=== PATIENT | male | born 1995 | race Caucasian/White ===

== ENCOUNTER → 2017-06-08 | Outpatient (CLI) | payer OTHER ==
[2014-03-06 05:15] VITALS: BP 140/65
[~2017-06-08] MED LIST: ASPI81TA59 PO; CLOP75TA PO; DICL75TA PO; FINA5TAB4 PO; FLUO20CA16 PO; LOSA1TAB22 PO; METH18TA5 PO; OLAN10TA9 PO; OLAN20TA7 PO; PANT40TA5 PO; SIMV20TA3 PO; TAMS0.4C97 PO; TRAM50TA PO
--- NOTE | 2017-06-09 14:46 | RAD ---
Chest, 2 views, 06/08/2017: HISTORY: Shortness of breath Comparison is made to a study from 06/08/2017. The heart size is normal. There are prominent epicardial fat pads. There is calcific plaquing of the thoracic aorta. The pulmonary vascularity is normal. No pulmonary infiltrate is seen. There is no evidence of pleural fluid. IMPRESSION: No acute cardiopulmonary abnormality is detected. Electronically signed by: Kirt Huff MD (06/09/2017 2:43 PM) [facility]
== END | disposition home or self-care (01) ==
LOC: PMG 17:34
PROVIDERS: ATTEND Physician Assistant
DX: R06.02 Shortness of breath (principal); I10 Essential (primary) hypertension; J44.9 Chronic obstructive pulmonary disease, unspecified; E78.5 Hyperlipidemia, unspecified
CPT/HCPCS: 71046

== ENCOUNTER → 2018-07-17 | Outpatient (CLI) | payer OTHER ==
[2014-03-06 05:15] VITALS: BP 140/65
[~2018-07-17] MED LIST changes: +OLAN20TA15 PO; -OLAN20TA7 PO
--- NOTE | 2018-07-17 13:24 | RAD ---
EXAM: CT Head without IV contrast CLINICAL HISTORY: Dizziness COMPARISON: None. TECHNIQUE: Routine CT of the head without contrast. Soft tissues and bone windows were reviewed. PQRS compliance statement - One or more of the following individualized dose reduction techniques were utilized for this study: 1. Automated exposure control 2. Adjustment of the mA and/or kV according to patient size 3. Use of iterative reconstruction technique FINDINGS: There is no evidence of hemorrhage, mass or extra-axial fluid collection. Subcortical and periventricular foci of hypoattenuation may be seen with chronic small vessel disease. There is no mass effect or shift of the intracranial structures. The ventricles and cerebral sulci are prominent for the patients stated age consistent with generalized cerebral volume loss. The cerebellum and brainstem are unremarkable. The calvarium demonstrates no evidence of fracture or focal lesion. There is normal aeration of the visualized paranasal sinuses and mastoid air cells. The visualized portions of the orbits are normal. Atherosclerotic calcifications of the intracranial internal carotid and vertebral arteries is seen. IMPRESSION: 1. No evidence for acute intracranial process. 2. Changes of generalized cerebral atrophy/volume loss with prominence of the lateral ventricles and sulci. 3. Chronic small vessel disease. Electronically signed by: Wili Stratton MD (07/17/2018 1:21 PM) [id number]
== END | disposition home or self-care (01) ==
LOC: CT 09:43
PROVIDERS: ATTEND Family Medicine
DX: I65.29 Occlusion and stenosis of unspecified carotid artery (principal); I73.9 Peripheral vascular disease, unspecified; I67.9 Cerebrovascular disease, unspecified
CPT/HCPCS: 70450

== ENCOUNTER → 2018-08-24 | Outpatient (CLI) | payer OTHER ==
[2014-03-06 05:15] VITALS: BP 140/65
--- NOTE | 2018-08-24 09:47 | RAD ---
Indication: Left hand and wrist injury TECHNIQUE: 2 views of the left wrist and 2 views of the left hand COMPARISON: None FINDINGS/ impression: Nondisplaced fracture is seen of the distal radius with extension to the radiocarpal joint. Wrist swelling noted. Polyarticular mild osteoarthritis. Electronically signed by: Brooks Obregon DO (08/24/2018 9:44 AM) [facility]
--- NOTE | 2018-08-24 09:47 | RAD ---
Indication: Left hand and wrist injury TECHNIQUE: 2 views of the left wrist and 2 views of the left hand COMPARISON: None FINDINGS/ impression: Nondisplaced fracture is seen of the distal radius with extension to the radiocarpal joint. Wrist swelling noted. Polyarticular mild osteoarthritis. Electronically signed by: Brooks Obregon DO (08/24/2018 9:44 AM) [facility]
== END | disposition home or self-care (01) ==
LOC: PMG 08:55
PROVIDERS: ATTEND Physician Assistant
DX: S52.502A Unspecified fracture of the lower end of left radius, initial encounter for closed fracture (principal); M15.9 Polyosteoarthritis, unspecified; W19.XXXA Unspecified fall, initial encounter; Y93.89 Activity, other specified; Y92.89 Other specified places as the place of occurrence of the external cause; Y99.8 Other external cause status
CPT/HCPCS: 73100; 73120

== ENCOUNTER → 2018-09-13 | Outpatient (CLI) | payer OTHER ==
[2014-03-06 05:15] VITALS: BP 140/65
--- NOTE | 2018-09-13 10:50 | RAD ---
EXAM: Left wrist, 2 views. HISTORY: Pain. COMPARISON: 08/24/2018. FINDINGS: 2 views of the left wrist are obtained. Evaluation is limited due to external casting material. There has been suspected slight interval healing of a minimally displaced intra-articular fracture of the distal radial metaphysis. IMPRESSION: Suspected slight interval healing of a minimally displaced distal radial metaphyseal fracture, with evaluation limited due to overlying casting material. Electronically signed by: Esther Wright MD (09/13/2018 10:47 AM) [facility]
--- NOTE | 2018-09-13 15:08 | RAD ---
Bone Densitometry History: Screening, history of right wrist fracture. Findings: Bone Densitometry was performed with dual photon absorption of the lumbar spine and right proximal femur. Lumbar Spine: Bone density is 1.459 g/cm2 for L1-L4. T-score is 2.0. Z-score is 2.0. Right total femur: Bone density is 1.052 g/cm2. T-score is 0.0. Z-score is 0.7. IMPRESSION: Bone mineral densities of the lumbar spine and right femur are normal. World Health Organization definition of osteoporosis and osteopenia for women: normal equals T score at or above -1.0 standard deviations; osteopenia equals T score between -1.0 and -2.5 standard deviations; osteoporosis equals T score at or below -2.5 standard deviations. Electronically signed by: Woody Segovia MD (09/13/2018 3:06 PM) [id number]
== END | disposition home or self-care (01) ==
LOC: PMG 09:38
PROVIDERS: ATTEND Physician Assistant
DX: Z13.820 Encounter for screening for osteoporosis (principal); S52.92XA Unspecified fracture of left forearm, initial encounter for closed fracture; X58.XXXA Exposure to other specified factors, initial encounter; Y93.89 Activity, other specified; Y92.89 Other specified places as the place of occurrence of the external cause; Y99.8 Other external cause status
CPT/HCPCS: 73100; 77080

== ENCOUNTER → 2018-09-21 | Outpatient (CLI) | payer OTHER ==
[2014-03-06 05:15] VITALS: BP 140/65
--- NOTE | 2018-09-21 11:16 | CARD ---
MR#: [id number] Date of Study: 09/21/2018 Ordering Physician: CESILIA SANDOVAL, Referring Physician: CESILIA SANDOVAL, Tech: Nesha Matthew ANGEL APPROVED REPORT EXAM: Two-dimensional and M-mode echocardiogram with Doppler and color Doppler. Other Information Quality : Fair INDICATION Peripheral Edema 2D DIMENSIONS RVDd3.2 (2.9-3.5cm)Left Atrium(2D)3.4 (1.6-4.0cm) IVSd1.0 (0.7-1.1cm)Aortic Root(2D)3.3 (2.0-3.7cm) LVDd5.2 (3.9-5.9cm)LVOT Diameter2.2 (1.8-2.4cm) PWd0.9 (0.7-1.1cm)LVDs3.3 (2.5-4.0cm) FS (%) 36.5 %SV86.2 ml LVEF(%)65.8 (>50%) Aortic Valve AoV Peak Anshu.143.3cm/sAoV VTI26.2cm AO Peak GR.8.2mmHgLVOT Peak Anshu.105.5cm/s LVOT VTI 19.58cmAO Mean GR.4mmHg KEDAR (VMAX)2.78fp1HAZ (VTI)2.81cm2 AI P 1/2 Dxlm282rt Mitral Valve MV E Pzkjnbdu01.1cm/sMV DECEL QHRH500sg MV A Yvkajbfp730.8cm/sE/A Ratio0.5 Tricuspid Valve TR P. Onpeesuy849og/sRAP ZKZUFNYI9hgCn TR Peak Gr.20goFmFKIC70kuZe Pulmonary Vein S1 Luzhhplg15.0cm/sD2 Lbxqrukk13.4cm/s LEFT VENTRICLE The left ventricle is normal size. There is normal left ventricular wall thickness. The left ventricu lar systolic function is normal. The Ejection Fraction is 60-65%. There is normal LV segmental wall m otion. Transmitral Doppler flow pattern is Grade I-abnormal relaxation pattern. RIGHT VENTRICLE The right ventricle is normal size. The right ventricular systolic function is normal. ATRIA The left atrium size is normal. The right atrium size is normal. The interatrial septum is intact wit h no evidence for an atrial septal defect or patent foramen ovale as noted on 2-D or Doppler imaging. AORTIC VALVE The aortic valve is calcified but opens well. Doppler and Color Flow revealed mild to moderate aortic regurgitation. There is no significant aortic valvular stenosis. MITRAL VALVE The mitral valve is calcified but opens well. There is no evidence of mitral valve prolapse. There is no mitral valve stenosis. Doppler and Color-flow revealed trace mitral regurgitation. TRICUSPID VALVE The tricuspid valve is normal in structure and function. Doppler and Color Flow revealed trace tricus pid regurgitation. There is mild pulmonary hypertension. The PA pressure was estimated at 31 mmHg. Th ere is no tricuspid valve stenosis. PULMONIC VALVE The pulmonic valve is not well visualized. Doppler and Color Flow revealed no pulmonic valvular regur gitation. There is no pulmonic valvular stenosis. GREAT VESSELS The aortic root is normal in size. The ascending aorta is moderately dilated. The IVC is normal in si ze and collapses >50% with inspiration. PERICARDIAL EFFUSION There is no evidence of significant pericardial effusion. Critical Notification Critical Value: No <Conclusion> The left ventricular systolic function is normal. The Ejection Fraction is 60-65%. There is normal LV segmental wall motion. Transmitral Doppler flow pattern is Grade I-abnormal relaxation pattern. Mild to moderate aortic regurgitation. Trace mitral regurgitation. Trace tricuspid regurgitation. There is mild pulmonary hypertension. The PA pressure was estimated at 31 mmHg. The ascending aorta is moderately dilated. There is no evidence of significant pericardial effusion. Signed by : Serjio Leal, Electronically Approved : 09/21/2018 11:16:24
== END | disposition home or self-care (01) ==
LOC: ECHO 09:49
PROVIDERS: ATTEND Internal Medicine Cardiovascular Disease
DX: I08.0 Rheumatic disorders of both mitral and aortic valves (principal); I27.20 Pulmonary hypertension, unspecified
CPT/HCPCS: 93306

== ENCOUNTER → 2018-09-29 | Outpatient (CLI) | payer OTHER ==
[2014-03-06 05:15] VITALS: BP 140/65
--- NOTE | 2018-09-29 11:47 | RAD ---
MR#: [id number] Date of Study: 09/29/2018 Ordering Physician: CESILIA SANDOVAL, Referring Physician: CESILIA SANDOVAL, Tech: Teresa Garcia RDMS, RVT, RTR APPROVED REPORT Patient Location : OUT-PATIENT Indications Lower Extremity Edema : Bilateral Grayscale images of the bilateral saphenofemoral junctions, greater and lesser saphenous veins are gr ossly unremarkable. The right great saphenous vein measures 5.2 mm and does not show any evidence of reflux. The left gre at saphenous vein measures 3.1 mm and does not show any evidence of reflux. The bilateral lesser saphenous veins do not show any evidence of reflux. There is a right-sided Rodriguez's cyst noted measure approximately 5.2 x 2.7 x 1.4 cm. Critical Notification Critical Value: No <Conclusion> 1. No significant reflux bilaterally in the lower extremity 2. Incidental note is made of a right-sided Rodriguez's cyst measuring approximately 5.2 x 2.7 x 1.4 cm. Signed by : Cesilia Sandoval, Electronically Approved : 09/29/2018 11:47:22
== END | disposition home or self-care (01) ==
LOC: US 09:50
PROVIDERS: ATTEND Internal Medicine Cardiovascular Disease
DX: R60.0 Localized edema (principal); M71.21 Synovial cyst of popliteal space [Baker], right knee
CPT/HCPCS: 93970

== ENCOUNTER → 2018-10-18 | Outpatient (CLI) | payer OTHER ==
[2014-03-06 05:15] VITALS: BP 140/65
--- NOTE | 2018-10-18 11:09 | RAD ---
EXAM: PA and lateral views of the left wrist DATE: 10/18/2018 12:00 AM INDICATION: Follow-up, prior Left Wrist Fracture COMPARISON: No Prior FINDINGS: Progressively healing distal radial fracture is in near-anatomic alignment. Neutral radial tilt. Scapholunate interval measures 5 mm. Decreased bone mineral density. Degenerative changes most prominent at the thumb CMC joint degenerative changes are seen. IMPRESSION: 1. Progressively healing distal left radial fracture in near-anatomic alignment 2. Mild scapholunate widening may be seen with underlying scapholunate ligament injury. Electronically signed by: Wili Stratton MD (10/18/2018 11:06 AM) [id number]
== END | disposition home or self-care (01) ==
LOC: PMG 09:13
PROVIDERS: ATTEND Physician Assistant
DX: S52.592D Other fractures of lower end of left radius, subsequent encounter for closed fracture with routine healing (principal); X58.XXXD Exposure to other specified factors, subsequent encounter
CPT/HCPCS: 73100

== ENCOUNTER → 2019-11-21 | Outpatient (CLI) | payer MEDICARE ==
[2014-03-06 05:15] VITALS: BP 140/65
[~2019-11-21] MED LIST changes: -PANT40TA5 PO; +PANT40TA6 PO; +SIMV20TA18 PO; -SIMV20TA3 PO
--- NOTE | 2019-11-21 17:25 | RAD ---
PA and lateral chest radiographs 11/21/2019 CLINICAL HISTORY: COPD. Shortness of breath. PA and lateral digital radiographs of the chest were obtained. Comparison study is dated 06/08/2017. The cardiac silhouette is mildly enlarged. The thoracic aorta is tortuous. Atherosclerotic calcification of the thoracic aorta is seen. No acute parenchymal or infiltrate is seen. No pleural effusion or pneumothorax is noted. Degenerative changes are seen involving the thoracic spine. IMPRESSION: No acute abnormality is seen. Electronically signed by: Liu Pierce MD (11/21/2019 5:22 PM) [id number]
== END ==
LOC: DXRAD 15:41
PROVIDERS: ATTEND Hospitalist
DX: I70.0 Atherosclerosis of aorta (principal); J44.9 Chronic obstructive pulmonary disease, unspecified; R06.02 Shortness of breath
CPT/HCPCS: 71046

== ENCOUNTER → 2019-12-14 | Outpatient (CLI) | payer MEDICARE ==
[2014-03-06 05:15] VITALS: BP 140/65
[2019-12-14 14:53] LABS: CALCIUM 7.9 mg/dL (8.5-10.1); CREATININE 1.9 mg/dL (0.7-1.3); GFR 34.4; MAGNESIUM 2.1 mg/dL (1.8-2.4); POTASSIUM 4.1 mmol/L (3.5-5.1)
== END ==
LOC: SPEC 14:36
PROVIDERS: ATTEND Internal Medicine Cardiovascular Disease
DX: I13.0 Hypertensive heart and chronic kidney disease with heart failure and stage 1 through stage 4 chronic kidney disease, or unspecified chronic kidney disease (principal)
CPT/HCPCS: 36415; 80048; 83735